=== PATIENT | male | born 1985 | race Two or more races ===

== ENCOUNTER 2024-09-11 21:33 | Emergency (ER) | payer MEDICAID, SELFPAY ==
[2024-09-11 21:35] VITALS: BMI 30.9
[2024-09-11 22:35] VITALS: BP 127/76; PULSE 75; RESP 18; TEMP 36.6; O2SAT 98
[2024-09-11] MEDS: DIAZEPAM 5 MG TABLET PO (23:01)
--- NOTE | 2024-09-12 04:52 | EDNOTE_ITS ---
ED Anxiety RME/HPI General Chief Complaint: General Adult/Misc Complain Stated Complaint: FARRELL, dizzyness, SOB Time Seen by Provider: 09/11/24 22:51 Arrival date/time: 09/11/24 21:33 38M with no significant PMH presents to ED with FARRELL, dizziness, SOB, full-body tingling, and confusion that started after he took one of his 's [place]. Limitations: no limitations Related Data Allergies Allergy/AdvReac Type Severity Reaction Status Date / Time No Known Allergies Allergy Verified 09/11/24 21:36 Review of Systems Review of Systems Systems Reviewed: All systems reviewed, normal except as documented Constitutional Constitutional: Reports system reviewed and no additional complaints, except as documented, Reports as per HPI, Denies fever(s) and Reports headache(s) ENT Ears, Nose, Mouth, and Throat: Reports as per HPI, Denies disequilibrium, Reports headache(s) and Reports vertigo Cardiovascular Cardiovascular: Reports system reviewed and no additional complaints, except as documented, Denies chest pain and Reports dyspnea Respiratory Respiratory: Reports system reviewed and no additional complaints, except as documented, Reports as per HPI, Denies cough and Reports dyspnea Gastrointestinal Gastrointestinal: Reports system reviewed and no additional complaints, except as documented, Denies abdominal pain, Denies nausea and Denies vomiting Musculoskeletal Musculoskeletal: Reports tingling Neurologic Neurologic: Reports system reviewed and no additional complaints, except as documented, Reports as per HPI, Denies confusion, Denies disequilibrium, Reports headache(s), Reports tingling and Reports vertigo Psychiatric Psychiatric: Denies confusion Past Medical History Social History SMOKING STATUS: Current every day smoker ED Exam General Limitations: Present no limitations General appearance: Present alert and in no apparent distress Head Head exam: Present atraumatic Eye Eye exam: Present normal appearance, PERRL and EOMI ENT ENT exam: Present normal exam, normal oropharynx and mucous membranes moist Neck Neck exam: Present normal inspection, full ROM and trachea midline Chest Chest inspection: Present normal inspection and symmetric chest wall rise Respiratory Respiratory exam: Present normal lung sounds bilaterally Cardiovascular Cardiovascular exam: Present regular rate, normal rhythm and normal heart sounds Abdominal Exam Abdominal exam: Present soft and normal bowel sounds Extremities Exam Extremities exam: Present normal inspection and full ROM Back Exam Back exam: Present normal inspection and full ROM Neurological Exam Neurological exam: Present alert, oriented X3 and CN II-XII intact Psychiatric Psychiatric exam: Present normal affect and normal mood Skin Skin exam: Present warm, dry, intact and normal color Course Quality Measures none Orders Category Date Time Status Diazepam [Valium] Med 09/11/24 22:51 Discontinued 5 mg PO X1 ONE Vital Signs Vital signs: Vital Signs Temperature 97.8 F 09/11/24 22:35 Pulse Rate 75 09/11/24 22:35 Respiratory Rate 18 09/11/24 22:35 Blood Pressure 127/76 09/11/24 22:35 Pulse Oximetry (%) 98 09/11/24 22:35 Oxygen Delivery Method Room Air 09/11/24 22:35 Anxiety MDM Narrative MDM Narrative: 38M with no significant PMH presents to ED with FARRELL, dizziness, SOB, full-body tingling, and confusion that started after he took one of his 's [place]. Physical exam reveals normal pupil response and EOM. Strength and sensation equal bilaterally. Clear ENT and lungs. RRR. Patient is afebrile, calm, and alert. Valium relieved symptoms. Patient data External records reviewed:: None Clinical information provided by:: patient Social determinants that could affect healthcare access:: none Patient has the following chronic illnesses:: none How is presenting disease/condition affected by chronic disease/condition?: no chronic disease Evaluation data The following diagnostics were reviewed and interpreted by me:: other (specify) (none) Lab and/or radiology exams considered but not ordered:: not ordered Interpretation Summary: n/a Medications / Prescriptions Medications or Prescriptions considered but not ordered:: ordered Medication administrations:: Medication Administration History Discontinued Medications Diazepam (Diazepam 5 Mg Tablet) 5 mg PO X1 ONE Stop: 09/11/24 22:52 Last Admin: 09/11/24 23:01 Dose: 5 mg Documented By: MP Consultations Consultation(s) initiated? (list below): No Diagnosis Differential diagnosis anxiety: hyperventilation, panic disorder, acute anxiety and other (drug adverse reaction) Most likely diagnosis given after review of the tests above:: drug adverse reaction Admission Indicated Admission indicated?: not indicated Admission Request Was there a request for admission?: No Disposition Plan Disposition Plan: Discharge Discharge Attestation Discharge Attestation: The patient and all family members were given an opportunity to ask questions and understood the discharge instructions. Discharge instructions specifically effects, indications for sooner follow up or return to the emergency department, and the expected course of current diagnosis. Patient condition: Stable Discharge Plan Plan Patient Disposition: HOME (Self Care) Disposition Comment: Stable Problem List Clinical Impression: Adverse drug effect Patient/Caregiver Discharge Instructions Additional Instructions: Please follow-up with PCP within 24-48 hours and return immediately if symptoms worsen. Don't take other people's meds. Print Language: Portuguese Stand Alone Forms: Patient Portal Info Letter ALEX/DEANA Supervising Physician ALEX/DEANA Supervising Physician: Dr. Bingham
== END 2024-09-11 23:50 | disposition home or self-care (01) ==
LOC: SERX 09-12 00:07
PROVIDERS: Emergency Provider Emergency Medicine
DX: R51.9 Headache, unspecified (principal); R42 Dizziness and giddiness; R06.02 Shortness of breath; R20.2 Paresthesia of skin; R41.0 Disorientation, unspecified; T40.2X5A Adverse effect of other opioids, initial encounter
CPT/HCPCS: 99282; A9270